=== PATIENT | female | born 2000 | race Caucasian/White ===

== ENCOUNTER 2021-12-31 07:46 | Day surgery (SDC) | payer BC, SELFPAY ==
[2021-12-31] VITALS (7 sets, daily range): BP systolic 113–126; BP diastolic 66–73; PULSE 79–96; RESP 14–18; TEMP 36.5; O2SAT 97–100; BMI 23.5
--- NOTE | 2021-12-31 11:00 | W.PM.ENTPROC ---
Procedure Note Date of procedure: 12/31/21 Procedure: Preoperative diagnosis right external ear mass Postoperative diagnosis same probable keloid Excision 1.2 cm mass with layered closure and Kenalog injection The patient was brought to the operating room prepped and draped in usual fashion. The area surrounding the lesion near the right earlobe was injected. The lesion was excised in elliptical fashion. The wound edges were undermined and closed primarily with 4-0 gut in the subcutaneous layer and interrupted 5 0 nylon in the skin. Kenalog 40 milligram/mL approximately 0.3 mL was injected at the termination of procedure. The patient tolerated procedure well was taken to recovery in satisfactory condition. Blood loss less than 5 mL. Complications 0 Surgeon: Dionte Martinez MD
== END 2021-12-31 09:53 | disposition home or self-care (01) ==
PROVIDERS: PCP Pediatrics; Visit Provider Otolaryngology
PROC: (CPT 11442; principal; 2021-12-31 08:45)
DX: L91.0 Hypertrophic scar (principal)
CPT/HCPCS: 11442; 12051; 88305; J3301